=== PATIENT | female | born 1940 | race Caucasian/White ===

== ENCOUNTER → 2024-11-04 09:53 | Outpatient (BNVA) | payer MEDICARE, SELFPAY | PROVIDERS: PCP Clinical Nurse Specialist Adult Health; Visit Provider Clinical Nurse Specialist Adult Health | DX: I10 Essential (primary) hypertension (principal); E55.9 Vitamin D deficiency, unspecified | CPT/HCPCS: 80053; 80061; 82306; 85025 ==

== ENCOUNTER → 2025-01-11 07:50 | Outpatient (BNVA) | payer MEDICARE, MEDICAID, SELFPAY | PROVIDERS: PCP Clinical Nurse Specialist Adult Health; Visit Provider Dermatology | DX: L82.1 Other seborrheic keratosis (principal); L81.4 Other melanin hyperpigmentation; L72.0 Epidermal cyst; L85.3 Xerosis cutis; Z08 Encounter for follow-up examination after completed treatment for malignant neoplasm; Z85.828 Personal history of other malignant neoplasm of skin; D48.5 Neoplasm of uncertain behavior of skin; L57.0 Actinic keratosis | CPT/HCPCS: 11102; 17000; 99203 ==

== ENCOUNTER 2025-01-30 11:59 | Emergency (ER) | payer OTHER, MEDICAID, SELFPAY ==
[2025-01-30 11:59] VITALS: BP 115/57; PULSE 62; RESP 17; TEMP 36.5; O2SAT 99; BMI 21.7
--- NOTE | 2025-01-30 12:00 | XRR_ITS ---
PROCEDURE INFORMATION: Exam: XR Chest Exam date and time: 01/30/2025 12:23 PM Age: 84 years old Clinical indication: Cough and dyspnea; Additional info: Dyspnea/cough TECHNIQUE: Imaging protocol: Radiologic exam of the chest. Views: 1 view. COMPARISON: No relevant prior studies available. FINDINGS: Lungs: Unremarkable. No consolidation. Pleural spaces: Unremarkable. No pleural effusion. No pneumothorax. Heart/Mediastinum: Unremarkable. No cardiomegaly. Bones/joints: Unremarkable. XR/XR chest 1V portable [id number] IMPRESSION: No acute findings.
--- NOTE | 2025-01-30 12:10 | W.ED.DIZZY ---
HPI - Dizziness General: Chief Complaint: Dizziness Stated Complaint: dizzy; fall Time Seen by Provider: 01/30/25 12:00 History of Present Illness: HPI Narrative: 84-year-old female presents emergency room after getting lightheaded and dizzy she was standing at [facility] she fell backwards after beginning to feel lightheaded she had anticipation that she would pass out. She states she has had this before. She states she landed on her buttocks and then fell backwards and hit her head on the ground. No complete loss of consciousness. She is not having any chest pain. No difficulty with speech or vision. Associated symptoms: Denies chest pain or chills Related Data Home Medications ?Medication ?Instructions ?Recorded ?Confirmed calcium 600 mg (as carbonate)-vit 1 tab PO BID 11/04/24 02/04/25 D3 10 mcg (400 unit) chewable tablet (Calcium 600 with Vitamin D3) acetaminophen 500 mg capsule 500 mg PO Q6H PRN Pain 12/07/24 02/04/25 vit C 250 mg-vit E 90 mg-zinc 40 1 tab PO BID 01/30/25 02/04/25 mg-copper 1 [id number] capsule (PreserVision AREDS-2) Previous Rx's ?Medication ?Instructions ?Recorded amlodipine 2.5 mg tablet 2.5 mg PO BID #180 tabs 02/04/25 cefdinir 300 mg capsule 300 mg PO Q12H #14 caps 02/04/25 losartan 50 mg tablet 100 mg (2 x 50 mg) PO DAILY 90 02/04/25 days #180 tabs potassium chloride 10 mEq 20 meq (2 x 10 mEq) PO DAILY #180 02/05/25 tablet,extended release (Klor-Con) tabs Allergies Allergy/AdvReac Type Severity Reaction Status Date / Time No Known Allergies Allergy Unverified 02/04/25 10:50 Review of Systems Const: Denies: fever(s) or chills Card: Denies: chest pain Resp: Denies: dyspnea GI: Denies: abdominal pain : Denies: dysuria, urinary frequency or urinary urgency Musc: Denies: neck pain or back pain Skin/Breast: Denies: rash PFSH ED PFSH: Medical History Hyperlipidemia, unspecified hyperlipidemia type Stage 3a chronic kidney disease (CKD) Vitamin D deficiency Generalized osteoarthritis Post-menopausal Anosmia 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 quit in 2016 Emphysema of lung hx of emphysema r/t smoking Glaucoma Macular degeneration follows with Dr Bonner Hypokalemia Essential hypertension Surgical History Hx of esophagogastroduodenoscopy hx of egd r/t peptic ulcer Hx of tubal ligation Hx of cataract extraction Family History Other ALS (amyotrophic lateral sclerosis) Alcoholism in family Diabetes Social History Smoking and tobacco/nicotine status: former use of tobacco/nicotine Quit status (tobacco/nicotine): has quit using Year quit tobacco: 2015 Former quit date comment: 25 pack year history Alcohol intake: never Substance/Drug Use: never Number of children: 4 Current occupational status: retired Physical Exam Const: GENERAL APPEARANCE: cooperative and comfortable ORIENTATION/CONSCIOUSNESS: Yes awake, Yes oriented to person, Yes oriented to place and Yes oriented to time HENMT: COMMON NORMALS: normocephalic, atraumatic and hearing grossly normal bilaterally HEAD & SCALP: normocephalic and atraumatic Resp: COMMON NORMALS: normal respiratory effort, No retractions, No use of accessory muscles and clear to auscultation bilaterally AUSCULTATION: clear to auscultation bilaterally Cardio: COMMON NORMALS: regular rate, regular rhythm and No murmurs present (Cardio) RATE: regular rate RHYTHM: regular rhythm GI: COMMON NORMALS: Soft to palpation and No hepatosplenomegaly present AUSCULTATION: Yes normoactive bowel sounds PALPATION: Yes Soft to palpation, No Tenderness to palpation present (GI), No Guarding due to palpation present (GI) and Yes No hepatosplenomegaly present Extremity: COMMON NORMALS: normal to inspection, capillary refill normal, no clubbing, cyanosis or edema, no calf tenderness and no pedal edema Neuro: SENSORIUM/ORIENTATION: Yes oriented to person, Yes oriented to place and Yes oriented to time Skin: COMMON NORMALS: no rashes or lesions noted GENERAL SKIN EXAM: no rashes or lesions noted Course Vital Signs: Vital signs: Vital Signs Temperature 97.7 F 01/30/25 11:59 Pulse Rate 82 01/30/25 14:58 Respiratory Rate 16 01/30/25 14:58 Blood Pressure 134/71 01/30/25 14:58 Pulse Oximetry 98 01/30/25 14:58 Oxygen Delivery Me thod Room Air 01/30/25 14:00 MDM - Dizziness Medical Decision Making Patient states she feels well laboratory test do not show any significant abnormalities. CT of her head did not show any significant findings. Patient preferred to go home. She does have some abrasions to her leg use topical antibiotic ointment to the abrasions. Discussed admission patient preferred to be discharged home will have her follow-up with her primary care doctor within the next week. Medical Records I reviewed the patient's medical records. Lab Data I reviewed the patient's lab results. 01/30/25 11:45 01/30/25 11:45 Radiology Impressions Chest X-Ray 01/30/25 12:00 IMPRESSION: No acute findings. Head CT 01/30/25 12:57 IMPRESSION: No acute intracranial finding. Laboratory Results WBC 5.79 10^3/uL (3.29-11.43) 01/30/25 11:45 RBC 3.98 10^6/uL (3.85-5.65) 01/30/25 11:45 Hgb 12.30 g/dL (11.27-16.99) 01/30/25 11:45 Hct 37.4 % (36-47) 01/30/25 11:45 MCV 94.0 fl (85-98) 01/30/25 11:45 MCH 30.9 pg (27-33) 01/30/25 11:45 MCHC 32.9 g/dL (30-55) 01/30/25 11:45 RDW 12.0 % (12.1-15.1) L 01/30/25 11:45 Plt Count 247 10^3/cmm (157-399) 01/30/25 11:45 MPV 9.3 fL (7.4-10.4) 01/30/25 11:45 Neut % (Auto) 63.6 % 01/30/25 11:45 Lymph % (Auto) 26.9 % 01/30/25 11:45 Yell % (Auto) 6.6 % 01/30/25 11:45 Eos % (Auto) 1.7 % 01/30/25 11:45 Baso % (Auto) 0.9 % 01/30/25 11:45 Neut # (Auto) 3.68 10^3/uL (1.8-7.7) 01/30/25 11:45 Lymph # (Auto) 1.6 10^3/uL (0.8-4.8) 01/30/25 11:45 Yell # (Auto) 0.4 10^3/uL (0.2-0.9) 01/30/25 11:45 Eos # (Auto) 0.1 10^3/uL (0.0-0.8) 01/30/25 11:45 Baso # (Auto) 0.1 10^3/uL (0.0-0.1) 01/30/25 11:45 Nucleated RBC % (auto) 0 % 01/30/25 11:45 Nucleated RBCs # 0.0 /100WBC 01/30/25 11:45 Sodium 139 mmol/L (136-145) 01/30/25 11:45 Potassium 4.6 mmol/L (3.5-5.1) 01/30/25 11:45 Chloride 105 mmol/L (98-107) 01/30/25 11:45 Carbon Dioxide 23 mmol/L (22-29) 01/30/25 11:45 Anion Gap 15.6 (5-19) 01/30/25 11:45 BUN 24 mg/dL (8-23) H 01/30/25 11:45 Creatinine 1.4 mg/dL (0.5-0.9) H 01/30/25 11:45 GFR Calculation Not Reportable 01/30/25 11:45 Glucose 130 mg/dL (65-115) H 01/30/25 11:45 Calculated Osmolality 294 mOsm/kg (285-295) 01/30/25 11:45 Calcium 9.8 mg/dL (8.5-10.5) 01/30/25 11:45 Total Bilirubin 0.5 mg/dL (0.15-1.2) 01/30/25 11:45 AST 17 U/L (0-32) 01/30/25 11:45 ALT 10 U/L (0-33) 01/30/25 11:45 Alkaline Phosphatase 82 U/L (35-105) 01/30/25 11:45 Total Protein 6.7 g/dL (6.6-8.7) 01/30/25 11:45 Albumin 4.2 g/dL (3.5-5.2) 01/30/25 11:45 Globulin 2.5 g/dL (1.3-4.6) 01/30/25 11:45 Urine Color Yellow (Yellow) 01/30/25 12:24 Urine Appearance Clear (CLEAR) 01/30/25 12:24 Urine pH 5.5 (5-7) 01/30/25 12:24 Ur Specific [place] 1.017 (1.005-1.030) 01/30/25 12:24 Urine Protein Negative (Negative) 01/30/25 12:24 Urine Glucose (UA) Negative (Normal) 01/30/25 12:24 Urine Ketones Negative (Negative) 01/30/25 12:24 Urine Blood Negative (Negative) 01/30/25 12:24 Urine Nitrate Positive (Negative) A 01/30/25 12:24 Urine Bilirubin Negative (Negative) 01/30/25 12:24 Urine Urobilinogen 0.2 mg/dL (Negative) 01/30/25 12:24 Ur Leukocyte Esterase 2+ (Negative) A 01/30/25 12:24 Urine RBC 0-2 /hpf (0-2) 01/30/25 12:24 Urine WBC 21-50 /hpf (0-5) H 01/30/25 12:24 Ur Squamous Epith Cells 0-5 /hpf (0-5) 01/30/25 12:24 Amorphous Sediment Not Reportable 01/30/25 12:24 Urine Bacteria 4+ /hpf (NONE) H 01/30/25 12:24 Hyaline Casts 3.71 /lpf 01/30/25 12:24 All radiology interpretation(s) finalized by discharge EKG Data EKG 1: Interpretation: EKG sinus rhythm rate of 67 parable 162 QTc 417 no acute changes noted significant amount of artifact at baseline. No previous EKG for comparison. Discharge Plan Discharge Patient Disposition: Home Clinical Impression: Near syncope, Skin tear Condition: Stable Prescriptions: No Action acetaminophen 500 mg capsule 500 mg PO Q6H PRN (Reason: Pain) Calcium 600 with Vitamin D3 600 mg-10 mcg (400 unit) tablet,chewable 1 tab PO BID cefdinir 300 mg capsule 300 mg PO Q12H Qty: 14 0RF amlodipine 2.5 mg tablet 2.5 mg PO BID Qty: 180 3RF losartan 50 mg tablet 100 mg PO DAILY 90 Days Qty: 180 3RF potassium chloride [Klor-Con 10] 10 mEq tablet extended release 20 meq PO DAILY Qty: 180 0RF PreserVision AREDS-2 250-90-40-1 mg Capsule 1 tab PO BID Discharge Orders: Discharge ED (Routine); Ordered 01/30/25 Ordered By: Brock Elias Referrals: Davion Rush NP [Primary Care Provider, Family Practice] Discharge Diet: Usual diet Discharge Activity: Increase activity as tolerated Patient Instructions: Opioid Safety, Pain Management, Patient Portal & Chris Instructions Activity Restrictions/Additional Instructions: Thank you for choosing [facility] for your healthcare needs today. It is very important that you follow up as instructed or that you return to the Emergency Department should you have concerns or if your condition changes or worsens in any way. Emergency department visits are focused on emergent conditions, in some cases you may require further evaluation on an outpatient basis. You are seen in the emergency room after a fall related to a near syncopal episode. Imaging and lab work did not show any acute findings. Do recommend that you follow-up with your primary care doctor in the next few days. The superficial skin tears on your leg were treated with topical antibiotic ointment use [id number] topical antibiotic ointment once daily until healed. Your tetanus was updated. (Please note that included in your discharge packet is information concerning opioid safety and pain management. This information is given to all patients were discharged from the ER regardless of their discharge diagnosis or the medicines they usually take or are prescribed.) Print Language: Setswana Coding Level of Care Code ED Guidance And Control System Engineer for Alexis Barrett
[2025-01-30 12:16] LABS: Hematocrit 37.4 % (36-47); Hemoglobin 12.30 g/dL (11.27-16.99); Mean Corpuscular HGB Conc 32.9 g/dL (30-55); Mean Corpuscular Hemoglobin 30.9 pg (27-33); Mean Corpuscular Volume 94.0 fl (85-98); Nucleated Red Blood Cells % 0 %; Platelet Count 247 10^3/cmm (157-399); Red Blood Count 3.98 10^6/uL (3.85-5.65); White Blood Count 5.79 10^3/uL (3.29-11.43)
--- NOTE | 2025-01-30 12:16 | ECG_ITS ---
[facility] Date: 2025-01-30 Pat Name: Sneha Mai Department: Room: Gender: Female [employer]: : 1940 Requested By: Brock Mcdonald Order Number: [id number] Reading MD: ANTONY MORGAN Measurements Intervals Tucker Rate: 67 P: 44 MI: 162 QRS: -25 QRSD: 82 T: 67 QT: 395 QTc: 417 Interpretive Statements SINUS RHYTHM BORDERLINE LEFT AXIS DEVIATION [QRS AXIS < -20] NONSPECIFIC T-WAVE ABNORMALITY No previous ECG available for comparison Electronically Signed On 01-30-2025 21:11:08 CDT by ANTONY MORGAN [email or web address]
[2025-01-30 12:32] LABS: Glucose Urine UA Negative (Normal); Nitrate Urine Positive (Negative); Specific Gravity, Urine 1.017 (1.005-1.030)
[2025-01-30 12:37] LABS: Add Urine Microscopic? YES
[2025-01-30 12:40] LABS: Alanine Aminotransferase 10 U/L (0-33); Albumin Level 4.2 g/dL (3.5-5.2); Alkaline Phosphatase 82 U/L (35-105); Anion Gap 15.6 (5-19); Aspartate Amino Transferase 17 U/L (0-32); Blood Urea Nitrogen 24 mg/dL (8-23); Calcium 9.8 mg/dL (8.5-10.5); Carbon Dioxide 23 mmol/L (22-29); Chloride 105 mmol/L (98-107); Creatinine Clr Calc Pharmacy 32.9233; Globulin 2.5 g/dL (1.3-4.6); Glucose 130 mg/dL (65-115); Osmolality Calculated 294 mOsm/kg (285-295); Potassium 4.6 mmol/L (3.5-5.1); Sodium 139 mmol/L (136-145); Total Protein 6.7 g/dL (6.6-8.7)
--- NOTE | 2025-01-30 12:57 | CTR_ITS ---
PROCEDURE INFORMATION: Exam: CT Head Without Contrast Exam date and time: 01/30/2025 1:13 PM Age: 84 years old Clinical indication: Injury or trauma; Fall; Blunt trauma (contusions or hematomas) TECHNIQUE: Imaging protocol: Computed tomography of the head without contrast. Radiation optimization: All CT scans at this facility use at least one of these dose optimization techniques: automated exposure control; mA and/or kV adjustment per patient size (includes targeted exams where dose is matched to clinical indication); or iterative reconstruction. COMPARISON: No relevant prior studies available. RADIATION DOSE METRICS: Total DLP (mGy-cm): 1106.38 FINDINGS: Brain: No hemorrhage. Unremarkable white matter. No mass effect. Cerebral ventricles: Prominence of ventricles and sulci consistent with moderate generalized volume loss or atrophy. Paranasal sinuses: Visualized sinuses are unremarkable. No fluid levels. Mastoid air cells: Visualized mastoid air cells are well aerated. Orbital cavities: Status post bilateral scleral banding. Bones: Unremarkable. No acute fracture. Soft tissues: Mild right parietal scalp soft tissue swelling. CT/CT head wo con* [id number] IMPRESSION: No acute intracranial finding.
[2025-01-30 13:00] VITALS: BP 123/61; PULSE 69; O2SAT 96
[2025-01-30 14:00] VITALS: BP 144/71; PULSE 65; RESP 16; O2SAT 99
[2025-01-30 14:06] VITALS: BP 133/84; BP 134/65; BP 144/71; PULSE 65; PULSE 71; PULSE 75
[2025-01-30] MEDS: tetanus-dipt-pertussis 0.5 mL SDV IM (14:42)
[2025-01-30 14:58] VITALS: BP 134/71; PULSE 82; RESP 16; O2SAT 98
== END 2025-01-30 14:53 | disposition home or self-care (01) ==
PROVIDERS: Emergency Provider Family Medicine; PCP Clinical Nurse Specialist Adult Health
DX: R55 Syncope and collapse (principal); S80.819A Abrasion, unspecified lower leg, initial encounter; W19.XXXA Unspecified fall, initial encounter; E78.5 Hyperlipidemia, unspecified; I12.9 Hypertensive chronic kidney disease with stage 1 through stage 4 chronic kidney disease, or unspecified chronic kidney disease; N18.31 Chronic kidney disease, stage 3a; Z85.828 Personal history of other malignant neoplasm of skin; Z87.891 Personal history of nicotine dependence
CPT/HCPCS: 70450; 71045; 80053; 81001; 85025; 87077; 87086; 87186; 90471; 90715; 93005; 99285

== ENCOUNTER → 2025-02-16 10:41 | Outpatient (BNVA) | payer OTHER, MEDICAID, SELFPAY | PROVIDERS: PCP Clinical Nurse Specialist Adult Health; Visit Provider Dermatology | DX: L57.8 Other skin changes due to chronic exposure to nonionizing radiation (principal) | CPT/HCPCS: 17282; 99213 ==

== ENCOUNTER → 2025-02-22 10:02 | Outpatient (BNVA) | payer OTHER, MEDICAID, SELFPAY | PROVIDERS: PCP Clinical Nurse Specialist Adult Health; Visit Provider Clinical Nurse Specialist Adult Health | DX: E55.9 Vitamin D deficiency, unspecified (principal); I10 Essential (primary) hypertension | CPT/HCPCS: 80048; 82306 ==